=== PATIENT | male | born 1945 | race Caucasian/White ===

== ENCOUNTER 2016-10-19 16:28 | Inpatient (IN) | payer MEDICARE ==
[2016-10-19 17:05] LABS: BASO % 0.5 % (0-2); EOS % 5.4 % (0-7); EOSINOPHIL ABSOLUTE COUNT 0.4 tho/cmm (0.0-0.7); HCT-HEMATOCRIT 31.7 % (36.0-53.5); HGB-HEMOGLOBIN 9.4 gm/dl (13.5-17.0); IMMATURE GRANULOCYTES ABSOLUTE 0.01 tho/cmm (0-0.03); IMMATURE GRANULOCYTES PERCENT 0.2 % (0-0.3); LYMPH % 20.7 % (20-45); LYMPH ABSOLUTE COUNT 1.4 tho/cmm (0.8-4.5); MCH (MEAN CORPUSCULAR HGB) 23.4 pg (28.0-32.0); MCHC MEAN CORPUSCULAR HGB CONC 29.7 % (32.0-36.0); MCV (MEAN CELL VOLUME) 79.1 fl (82.0-96.0); MEAN PLATELET VOLUME 8.8 cmc (9.4-12.4); MONO % 9.5 % (0-12); MONOCYTE ABSOLUTE COUNT 0.6 tho/cmm (0.0-1.2); NEUTROPHIL ABSOLUTE COUNT 4.2 tho/cmm (1.6-8.0); NEUTROPHIL-AUTOMATED 4.2 tho/cmm (1.6-8.0); NEUTROPHILS % 63.7 % (40-80); PLATELET COUNT 418 tho/cmm (150-450); RED BLOOD COUNT 4.01 mil/cmm (4.40-5.70); RED CELL DISTRIBUTION WIDTH 18.7 % (12.4-16.4); WHITE BLOOD COUNT 6.6 tho/cmm (4.0-10.0)
[2016-10-19] MEDS ORDERED: ULTRAM50 M1 PO (17:22)
[2016-10-19] MEDS ORDERED: OMEPRAZOLE20 M3 PO (17:22)
[2016-10-19] MEDS ORDERED: SERTRALINE HCL50 M4 PO (17:22)
[2016-10-19] MEDS ORDERED: BALSALAZIDE DI750 M4 PO (17:22)
[2016-10-19] MEDS ORDERED: FOLIC ACID1 M1 PO (17:23)
[2016-10-19] MEDS ORDERED: ASPIRIN81 M1 PO (17:23)
[2016-10-19] MEDS ORDERED: CALCIUM 600 +1 EAC6 PO (17:23)
[2016-10-19] MEDS ORDERED: PRINIVIL20 M1 PO (17:24)
[2016-10-19] MEDS ORDERED: ZOCOR20 M1 PO (17:24)
[2016-10-19] MEDS ORDERED: MULTIVITAMINS1 EAC6 PO (17:24)
[2016-10-19] MEDS ORDERED: PROPRANOLOL HCL10 M1 PO (17:24)
[2016-10-19 17:25] LABS: ALBUMIN 3.9 g/dl (3.5-5.0); ALKALINE PHOSPHATASE 95 U/L (33-138); ALT/SGPT 30 U/L (12-78); ANION GAP 11 mmol/L (0-20); AST/SGOT 37 U/L (10-40); BILIRUBIN,TOTAL 0.4 mg/dl (0.0-1.5); BLOOD UREA NITROGEN 20 mg/dl (6-24); C-REACTIVE PROTEIN 0.6 mg/dl (0-0.9); CALCIUM 9.3 mg/dl (8.5-10.5); CARBON DIOXIDE-VENOUS 25 mmol/L (22-32); CHLORIDE 106 mmol/l (96-110); CREATININE 1.04 mg/dl (0.60-1.30); GLUCOSE 148 mg/dL (70-110); LIPASE 239 U/L (73-393); POTASSIUM 4.4 mmol/L (3.7-5.1); SODIUM 138 mmol/L (135-145); eGFR VALUE FOR BLACK 84 mL/Min
[2016-10-19] MEDS ORDERED: ROPINIROLE HCL2 M2 PO (17:25)
[2016-10-19] MEDS ORDERED: MIRTAZAPINE30 M2 PO (17:25)
[2016-10-19] MEDS ORDERED: FEOSOL325 M1 PO (17:26)
[2016-10-19] MEDS ORDERED: VITAMIN D31000 UNI3 PO (17:26)
[2016-10-19] MEDS ORDERED: DOXYCYCLINE HY100 M3 PO (17:26)
[2016-10-20 06:34] LABS: BASO % 0.1 % (0-2); HCT-HEMATOCRIT 31.8 % (36.0-53.5); HGB-HEMOGLOBIN 9.2 gm/dl (13.5-17.0); IMMATURE GRANULOCYTES ABSOLUTE 0.01 tho/cmm (0-0.03); IMMATURE GRANULOCYTES PERCENT 0.1 % (0-0.3); LYMPH % 4.5 % (20-45); LYMPH ABSOLUTE COUNT 0.4 tho/cmm (0.8-4.5); MCV (MEAN CELL VOLUME) 79.5 fl (82.0-96.0); MONO % 7.6 % (0-12); MONOCYTE ABSOLUTE COUNT 0.6 tho/cmm (0.0-1.2); NEUTROPHILS % 87.7 % (40-80); PLATELET COUNT 386 tho/cmm (150-450)
[2016-10-20 06:38] LABS: MCHC MEAN CORPUSCULAR HGB CONC 28.9 % (32.0-36.0)
[2016-10-20 06:47] LABS: ANION GAP 11 mmol/L (0-20); BLOOD UREA NITROGEN 18 mg/dl (6-24); CALCIUM 8.7 mg/dl (8.5-10.5); CARBON DIOXIDE-VENOUS 26 mmol/L (22-32); CHLORIDE 106 mmol/l (96-110); CREATININE 0.96 mg/dl (0.60-1.30); GLUCOSE 151 mg/dL (70-110); POTASSIUM 4.2 mmol/L (3.7-5.1); SODIUM 139 mmol/L (135-145); eGFR VALUE FOR BLACK >90 mL/Min
--- NOTE | 2016-10-20 14:35 | NUR ---
virtual care note: checked in with patient at this time. he is sitting up in his chair, family at bedside. states he feels "good" today. admits to taking walks. NG tube in place, awaiting clamp trial orders. NPO except for ice chips. alert/oriented, converses appropriately. encouraged IS and CDB, as well as continued ambulation. pt agreeable to this. will continue to monitor.
[2016-10-21 06:42] LABS: HGB-HEMOGLOBIN 8.7 gm/dl (13.5-17.0); PLATELET COUNT 364 tho/cmm (150-450)
--- NOTE | 2016-10-21 17:40 | NUR ---
[facility] care note: checked in on pt at 1715. he is sitting up in bed, several family members present in the room. he converses appropriately. states he is doing well, has no needs or questions. states he has been up for walks today, has tolerated sips of clears and is relieved to have had his NG tube removed earlier this shift. will continue to monitor.
[2016-10-22 04:44] LABS: BASO % 0.4 % (0-2); EOS % 5.5 % (0-7); EOSINOPHIL ABSOLUTE COUNT 0.3 tho/cmm (0.0-0.7); HCT-HEMATOCRIT 28.1 % (36.0-53.5); HGB-HEMOGLOBIN 8.1 gm/dl (13.5-17.0); LYMPH % 25.7 % (20-45); LYMPH ABSOLUTE COUNT 1.5 tho/cmm (0.8-4.5); MCH (MEAN CORPUSCULAR HGB) 23.1 pg (28.0-32.0); MCV (MEAN CELL VOLUME) 80.1 fl (82.0-96.0); MEAN PLATELET VOLUME 8.7 cmc (9.4-12.4); MONO % 9.9 % (0-12); MONOCYTE ABSOLUTE COUNT 0.6 tho/cmm (0.0-1.2); NEUTROPHIL ABSOLUTE COUNT 3.3 tho/cmm (1.6-8.0); NEUTROPHIL-AUTOMATED 3.3 tho/cmm (1.6-8.0); NEUTROPHILS % 58.5 % (40-80); PLATELET COUNT 315 tho/cmm (150-450); RED BLOOD COUNT 3.51 mil/cmm (4.40-5.70); RED CELL DISTRIBUTION WIDTH 19.1 % (12.4-16.4); WHITE BLOOD COUNT 5.7 tho/cmm (4.0-10.0)
[2016-10-22 04:48] LABS: MCHC MEAN CORPUSCULAR HGB CONC 28.8 % (32.0-36.0)
[2016-10-22 04:58] LABS: ANION GAP 10 mmol/L (0-20); BLOOD UREA NITROGEN 12 mg/dl (6-24); CALCIUM 8.7 mg/dl (8.5-10.5); CARBON DIOXIDE-VENOUS 28 mmol/L (22-32); CHLORIDE 107 mmol/l (96-110); CREATININE 0.74 mg/dl (0.60-1.30); GLUCOSE 88 mg/dL (70-110); MAGNESIUM 2.2 mg/dl (1.3-2.6); POTASSIUM 3.6 mmol/L (3.7-5.1); SODIUM 141 mmol/L (135-145); eGFR VALUE FOR BLACK >90 mL/Min
--- NOTE | 2016-10-22 21:05 | NUR ---
VN ROUNDING-PATIENT AMBULATING IN ROOM AND DOING FINE WITH SOME DISCOMFORT IN ABD BUT TOLERABLE BUT HIS RESTLESS LEG IS STARTING TO ACT UP SOME SO WE REVIEWED HIS NIGHTTIME MEDS AND HE REQUESTED ONE BE GIVEN SHORTLY AND THE REQUIP 1-2 HOURS LATER. PAGED NURSE TO LET HER KNOW. OTHERWISE PATIENT TOLERATING DIET HAD A BM TODAY. NO FURTHER QUESTIONS OR CONCERNS AND ANXIOUS TO GO HOME. CHART REVIEWED
[2016-10-23 04:55] LABS: HGB-HEMOGLOBIN 8.7 gm/dl (13.5-17.0); PLATELET COUNT 383 tho/cmm (150-450)
[2016-10-23] MEDS ORDERED: NORCO 5-325 TA1 EACH PO (09:17)
[2016-10-23] MEDS ORDERED: SENOKOT-S TABL1 EACH PO (09:23)
--- NOTE | 2016-10-23 10:01 | NUR ---
VIRTUAL CARE NOTE: PT DRESSED READY TO GO HOME, AT BEDSIDE. DISCHARGE INFORMATION GIVEN TO PT AND . DENIED QUESTIONS OR CONCENS. FLOOR NURSE AGUSTÍN-RN IN THE ROOM AT THIS TIME TO GETTING PT DISCHARGE.
== END 2016-10-23 10:05 | DRG 336 ==
LOC: EDMED 16:28 → EMR2 19:17 → PACU 22:14 → 5WD 23:16
PROVIDERS: Colon & Rectal Surgery; Emergency Medicine; Nurse Practitioner; ADMIT Family Medicine
PROC: 0DNM0ZZ Release Descending Colon, Open Approach (ICD-10-PCS; principal; 2016-10-19)
PROC: 0DN80ZZ Release Small Intestine, Open Approach (ICD-10-PCS; 2016-10-19)
PROC: 5A09357 Assistance with Respiratory Ventilation, Less than 24 Consecutive Hours, Continuous Positive Airway Pressure (ICD-10-PCS; 2016-10-20)
DX: K46.0 Unspecified abdominal hernia with obstruction, without gangrene (principal); K50.90 Crohn's disease, unspecified, without complications; K56.7 Ileus, unspecified; I10 Essential (primary) hypertension; E78.5 Hyperlipidemia, unspecified; E66.9 Obesity, unspecified; Z68.36 Body mass index [BMI] 36.0-36.9, adult; K21.9 Gastro-esophageal reflux disease without esophagitis; G25.81 Restless legs syndrome; G47.33 Obstructive sleep apnea (adult) (pediatric); M79.7 Fibromyalgia; M19.90 Unspecified osteoarthritis, unspecified site; Z87.891 Personal history of nicotine dependence; R41.0 Disorientation, unspecified
CPT/HCPCS: C1765; J0131; J1170; J1335; J1650; J2405; J7030; Q9967